=== PATIENT | female | born 1995 | race Caucasian/White ===

== ENCOUNTER → 2017-03-05 | Day surgery (SDC) | payer OTHER ==
[~2017-03-05] VITALS: Ht 157.5 cm; Wt 56.2 kg
[~2017-03-05] MED LIST: BENTYL 10 MG CA10 M1 PO; CALCIUM 600 +1 EA11 PO; CIPRO500 MG PO; CO Q-10100 MG PO; HYDROCODONE-AP1 EAC6 PO; LEXAPRO 10 MG T10 M2 PO; LORYNA 3 MG-0.1 EACH PO; MAGNESIUM OXID400 MG PO; MOBIC7.5 MG PO; OCELLA 3 MG-0.1 EACH PO; ONDANSETRON HCL4 M2 PO; PROBIOTIC1 EAC1 PO
--- NOTE | ~2017-03-05 | S ---
[facility] [place] [address] SURGICAL PATH RPT PROCEDURE Name: DAE CHURCH Room #: REG [facility]..#: [id number] Admission: 03/05/17 Date of : 89 Discharge: Report #: [id number] Path Case #: [id number] PATHOLOGY REPORT COLLECTION DATE: 03/05/2017 RECEIVED DATE: 03/06/2017 SUBMITTING PHYS: Dr. Herminio Purdy, DO OTHER PHYS: Dr. Luke Fernandez SPECIMEN(S) RECEIVED: A.Appendix * * * * * * * * * * * * FINAL DIAGNOSIS: Appendix, appendectomy: - Moderate acute and chronic appendicitis associated with fibrinopurulent material within the lumen. 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 (IUV:steve; 03/09/2017) PATHOLOGIST: Nayeli Clarke M.D. REPORT ELECTRONICALLY SIGNED BY: Nayeli Clarke M.D. DATE/TIME: 03/09/2017 16:54 * * * * * * * * * * * * GROSS PATHOLOGY: Received in formalin labeled "Dae Church, appendix" and consists of a 10.0 cm in length by 0.7 cm in diameter vermiform appendix with contiguous glistening yellow mesoappendix, 5.9 x 2.0 x 0.7 cm. The serosa is glistening, pink, newton, and slightly hemorrhagic. The margin is inked black. The lumen contains pasty brown feculent material. The mucosa is glistening and newton. No masses, fecaliths, or perforations are identified. The specimen is entirely submitted A1-A5. (WALT; 03/06/2017) CLINICAL HISTORY: Acute appendicitis INITIAL CPT CODE(S): A; 16585 Professional services performed by [facility] at [facility] [address] , [place] [address] [facility] [address] [place] [address] SURGICAL PATH RPT PROCEDURE Name: DAE CHURCH Room #: REG [facility].#: [id number] Admission: 03/05/17 Date of : [birth year] Discharge: Report #: [id number] Path Case #: [id number] Technical services performed by [facility] at [address] [place] [address], [facility] [address], [place] [address]. [facility] [place] [address] PHONE: [phone] DIRECTOR: Chuckie De Leon M.D. * * * END OF REPORT * * *
[2017-03-05 14:03] VITALS: BP 121/74
[2017-03-05 16:10] VITALS: BP 121/74
== END | disposition home or self-care (01) ==
LOC: OR 12:21
DX: K35.89 Other acute appendicitis (principal); Z88.1 Allergy status to other antibiotic agents; Z79.891 Long term (current) use of opiate analgesic; Z91.048 Other nonmedicinal substance allergy status
CPT/HCPCS: 50010; 50101; 50249; 50411; 50555; 50558; 50739; 50740; 50962; 51975; 52265; 53307; 53310; 54022; 54118; 55245; 56462; 56525; 56526; 62110; 62900; 70005

== ENCOUNTER → 2017-12-29 | Outpatient (CLI) | payer OTHER ==
[~2017-12-29] MED LIST changes: +FLEXERIL PO; +FROVA2.5 MG PO; +GIANVI 3 MG-0.1 EACH PO; +HYOSCYAMINE0.375 M1 PO; +LEVSIN0.125 MG PO; +LINZESS145 MCG PO; +MOBIC15 MG PO; +NEURONTIN300 MG PO; +PREDNISONE 5 MG5 M1 PO
--- NOTE | ~2017-12-29 | SLE ---
[facility] [place] [address] POLYSOMNOGRAPHY STUDY Name: DAE SHAH [facility] [id number] Admission: 12/29/17 Attend Phys: Jossy Doss MD Discharge: Date of : 93 Report #: [id number] THIS REPORT FOR: //name// CC: Jossy Jaramillo MD DATE OF SERVICE: 12/29/2017 ATTENDING PHYSICIAN: Dr. Satish Jaramillo. The patient is a 22-year-old who weighs 130 pounds and is 63 inches tall with a BMI of 23. The patient has severe subjective hypersomnia with an Sterling score of 20 out of a maximum of 24. The patient had a sleep study done at an outside facility in October and was found to have no evidence of any clinically significant sleep disordered breathing. She was referred back to [facility] for a polysomnogram followed by multiple sleep latency tests. The results of the polysomnogram are discussed here. The patient has been on cyclobenzaprine as well as Lexapro, which were withheld 2 weeks before as reported to me. During the night of study, the patient spent 470 minutes in bed and slept for 461 minutes with an excellent sleep efficiency of 98%. Sleep latency was 3.4 minutes with a REM latency of 52.4 minutes. Overall sleep architecture showed normal stage 2 and stage 2 sleep, normal N3 sleep and increased REM sleep, which was 31% of the total sleep time. During the night of the study, the patient had no central, mixed or obstructive apneas. There were no hypopneas. The patient's apnea-hypopnea index for the entire night was 0 per hour. Review of nocturnal oximetry study revealed an average oxygen saturation of 97% with a lowest of 93%. No clinically significant desaturations of less than 90% were observed. EKG monitoring revealed normal sinus rhythm. Average heart rate was 85 beats per minute with a maximum of 114 beats per minute. No arrhythmias were observed. No clinically significant PLMS were seen. The PLM index was 0.8 per hour with an arousal index of 0.1 per hour. Due to no significant sleep disordered breathing, the patient did not meet the criteria for CPAP initiation. IMPRESSION: 1. No clinically significant sleep disordered breathing. The patient's [facility] [address] [place] [address] POLYSOMNOGRAPHY STUDY Name: DAE SHAH Room #: REG CL[facility]ennie [facility]ate#: [id number] Admission: 12/29/17 Attend Phys: Jossy Doss MD Discharge: Date of : 93 Report #: [id number] apnea-hypopnea index for the entire night was 0 per hour. 2. Normal sleep efficiency of 98%. 3. No clinically significant nocturnal hypoxia. 4. No clinically significant periodic limb movements in sleep. RECOMMENDATIONS: 1. The patient did not meet the criteria for CPAP initiation. 2. 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 3. Cautioned regarding driving until the patient's hypersomnia has resolved. 4. To further evaluate the patient's severe subjective hypersomnia, the patient underwent multiple sleep latency tests the next day, which is reported separately. <ELECTRONICALLY SIGNED> By: Favio Doss MD 12/31/1717 06 29 Favio Doss MD /nt
--- NOTE | ~2017-12-29 | SLE ---
[facility] [place] [address] POLYSOMNOGRAPHY STUDY Name: DAE SHAH [id number] Admission: 12/29/17 Attend Phys: Jossy Doss MD Discharge: Date of : 93 Report #: [id number] THIS REPORT FOR: //name// CC: Jossy Jaramillo MD ATTENDING PHYSICIAN: Dr. Satish Jaramillo. The patient is a 22-year-old female who weighs 130 pounds and is 63 inches tall with a BMI of 23. The patient has severe subjective hypersomnia with an Ashford score of 20 out of a maximum of 24. The patient underwent multiple sleep latency tests, which was preceded by an overnight polysomnogram. The patient's polysomnogram did not reveal any evidence of clinically significant sleep disordered breathing. The patient's AHI for the entire night was 0 per hour. The patient has normal sleep efficiency of 98%. The patient had increased REM sleep, which was 31% of the total sleep time. Prior to the MSLT, the patient was advised to stop Lexapro and cyclobenzaprine for 2 weeks before the test.Patient also reportidly has cataplexy and hyponagogic hallucinations. Standard multiple sleep latency protocol was used. The patient was allowed 5 daytime nap opportunities spaced at 2 hour intervals beginning at 8:01 a.m. During the first nap, the patient's sleep latency was 1 minute and 42 seconds and the patient had REM sleep, which was seen at 15 minutes. During the second nap, the patient's sleep latency was 1 minute and again REM sleep was observed. During the third nap, the patient's sleep latency was 1 minute and 30 seconds and again REM sleep was observed. During the fourth nap, the patient's sleep latency was 1 minute and again REM sleep was observed. During the last nap, the patient's sleep latency was 2 minutes and 24 seconds and no REM sleep was observed. The patient's mean sleep latency for the all five naps was 1 minute and 31 seconds and out of 5 naps, REM sleep was observed in four naps. IMPRESSION: Highly abnormal multiple sleep latency tests with severe pathological hypersomnia. This is highly consistent with narcolepsy. Clinical correlation is advised Patients mean sleep latency for all five naps was only 1 min and 31 seconds and REM sleep was observed in 4/5 naps. RECOMMENDATION: 1. The patient would benefit from initiation of stimulant therapy. 2. 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 3. Cautioned regarding driving until patient's hypersomnia is resolved after [facility] [address] [place] [address] POLYSOMNOGRAPHY STUDY Name: PABLODAE CARDENAS Room #: REG [facility] Rio#: [id number] Admission: 12/29/17 Attend Phys: Jossy Doss MD Discharge: Date of : 93 Report #: [id number] initiation of stimulant treatment. 4. Follow up with sleep specialist as clinically indicated. <ELECTRONICALLY SIGNED> By: Favio Doss MD 12/31/17 0717 2113 2143 Favio Doss MD /nt
== END ==
LOC: SLEEPLAB 15:35
DX: G47.31 Primary central sleep apnea (principal); G47.19 Other hypersomnia; R53.83 Other fatigue

== ENCOUNTER → 2017-12-30 | Outpatient (CLI) | payer OTHER ==
[~2017-12-30] MED LIST changes: +NUVIGIL150 MG PO
[2017-12-30 17:17] LABS: AMP/METHAMP Negative (Negative); BARBITURATES Negative (Negative); BENZODIAZEPINES Negative (Negative); COCAINE Negative (Negative); METHADONE Negative (Negative); OPIATES Negative (Negative); PCP Negative (Negative)
== END ==
LOC: SLEEPLAB 06:25
PROVIDERS: Internal Medicine Critical Care Medicine
DX: G47.31 Primary central sleep apnea (principal); G47.19 Other hypersomnia; R53.83 Other fatigue

== ENCOUNTER → 2018-01-22 | Outpatient (CLI) | payer OTHER ==
[~2018-01-22] VITALS: Ht 157.5 cm; Wt 59.1 kg
--- NOTE | ~2018-01-22 | HPC ---
[facility] [place] [address] PAIN MANAGEMENT CONSULTATION Name: DAE SHAH Room #: REG [facility].#: [id number] Admission: 01/22/18 Attend Phys: Linwood Quiros MD Discharge: Date of : 93 Report #: [id number] THIS REPORT FOR: //name// CC: Linwood Fernandez MD DATE OF SERVICE: 01/22/2018 CHIEF COMPLAINT: Headache pain. HISTORY OF PRESENT ILLNESS: The patient is a 23-year-old female who has been seen in the pain clinic because of migraine headaches. She has migraine headaches as well as had some problems with her shoulders and arm. She has been experiencing pain and discomfort in the head area, it involves her occipital areas. Palpation in these areas reproduced her discomfort. She did try medications like Frova. She feels that her headaches still is problematic. She has returned today with the continuation of her headaches. She has tried Gralise. She did not find that this medication provided a significant improvement in her pain. At this juncture, she has come to the pain clinic with the contemplation of undergoing an occipital injection to help control and decrease her discomfort. ALLERGIES: MACROBID AND ADHESIVE TAPE. CURRENT MEDICATIONS: Linzess 145 mg capsules, hyoscyamine 0.375 mg q.12h, Levsin 0.125 mg p.r.n., prednisone 2.5 mg p.r.n., Meloxicam 15 mg daily, estradiol, Flexeril 10 mg p.r.n. spasms, gabapentin 300 mg daily, Zofran 4 mg q.8 hours, Lexapro 10 mg. PAIN CLINIC ASSESSMENT/PQRS: 1. The patient is not being treated for osteoarthritis or rheumatoid arthritis. 2. Height 5 feet 2 inches, weight 134 pounds, BMI is 23.8. 3. Vital signs: Blood pressure 125/86, pulse 126, respiratory rate 16, room air saturation 97%. 4. Pain intensity 08/13. 5. Fall risk. The patient has not fallen in the last 3 months. 6. Blood thinner. The patient is not on a blood thinning medication. 7. History of hypertension. The patient is not being treated for hypertension. 8. Opioid greater than 6 weeks. The patient is not on an opioid contract. 9. Risk assessment tool, low for her use of opioids. 10. Functional assessment tool 39/70. 11. Recreational drug use. The patient denies. 12. Tobacco. The patient has never smoked. 13. Alcohol. The patient drinks alcohol on an occasional basis. [address] [address] PAIN MANAGEMENT CONSULTATION Name: DAE SHAH [facility] [id number] Admission: 01/22/18 Attend Phys: Linwood Quiros MD Discharge: Date of : 93 Report #: [id number] PHYSICAL EXAMINATION: GENERAL: The patient is a well-developed, well-nourished white female. Appears her stated age. She is alert and oriented x 3. Her mother is present. HEENT: Normocephalic, atraumatic. Extraocular eye muscles intact. Sclerae nonicteric. Mucous membranes are moist. Hearing is within normal limits. The patient has good range of motion without JVD in the neck area. Palpation in the left and right occipital area causes some recurrent/exacerbation of pain and discomfort in this area. Palpation causes pain that radiates from the occipital area to the lateral temporal areas bilaterally and on the top of her head. MUSCULOSKELETAL: Without significant scoliosis, kyphosis, or lordosis. Muscle strength in the lower extremity judged to be 5/5. Muscle strength in upper extremity judged to be 5/5. IMPRESSION: 1. Occipital neuralgia bilaterally. 2. History of migraine headaches. 3. Chronic regional pain syndrome involving the left leg at age 11, treated conservatively and resolved. 3. Celiac disease. 4. Endometriosis. 5. Asthma. 6. Emotional problems. RECOMMENDATIONS: We discussed treatment options with the patient. Risks and benefits of an occipital injection were discussed. They include but are not limited to infection, increased muscle soreness, worsening of pain, no improvement in pain, and bleeding. PROCEDURE NOTE: The patient was placed in the prone position. Her neck was sterilely prepped with a chlorhexidine solution on the left and the right side. This area had been allowed to dry. The left and the right greater occipital areas were identified. A 25-gauge needle was advanced on the left side. The patient states this reproduced her discomfort. Aspiration was negative. Total of 5 mL of 0.5% bupivacaine and 40 mg triamcinolone was injected. The contralateral side was treated in a like fashion. A 25-gauge needle was advanced in the area of the greater occipital nerve. Aspiration was negative. A total of 5 mL of 0.5% bupivacaine was injected. A total of 40 mg triamcinolone was injected. The patient tolerated the procedure well. There were no complications. She remained in the pain clinic for an appropriate amount of time. She will follow up in the future as needed. We would like to thank you for letting us participate in her care. We hope she continues to improve. By: [id number] Linwood Quiros MD /MONIQUE
[2018-01-22 10:53] VITALS: BP 125/86
== END | disposition home or self-care (01) ==
LOC: PAIN 06:49
DX: M54.81 Occipital neuralgia (principal); G89.29 Other chronic pain; J45.909 Unspecified asthma, uncomplicated; F99 Mental disorder, not otherwise specified; Z88.8 Allergy status to other drugs, medicaments and biological substances; Z79.899 Other long term (current) drug therapy; G43.909 Migraine, unspecified, not intractable, without status migrainosus

== ENCOUNTER → 2018-02-03 | Outpatient (CLI) | payer OTHER ==
[~2018-02-03] VITALS: Ht 157.5 cm; Wt 60.1 kg
--- NOTE | ~2018-02-03 | HPC ---
[facility] [place] [address] PAIN MANAGEMENT CONSULTATION Name: DAE SHAH Room #: REG [facility] Rio#: [id number] Admission: 02/03/18 Attend Phys: Linwood Quiros MD Discharge: Date of : 89 Report #: [id number] THIS REPORT FOR: //name// CC: Linwood Fernandez DATE OF SERVICE: 02/03/2018 FOLLOWUP COMPLAINT: "The pain in the head has decreased. I have had a fewer migraine headaches after the occipital injection. I am having worse pain in my arms, particularly on the right side with pain that is going down into my arm with numbness, tingling, and particularly note numbness in my little and ring finger." HISTORY OF PRESENT ILLNESS: The patient is a 23-year-old female who has been seen in the Pain Clinic because of migraine headaches as well as cervical radicular pain. She underwent an injection in the occipital area at the last visit. She notes that the pain has decreased, she is having a fewer migraine headaches as a result of that. She is now having some discomfort involving her right arm with pain that is radiating down to the right shoulder, right arm, down into the hand with particular note of numbness and tingling involving the little and ring finger. She feels that she would like to consider a cervical epidural steroid injection given that the pain has continued to worsen. ALLERGIES: MACROBID, ADHESIVE TAPE. CURRENT MEDICATIONS: Linzess 145 mg capsules, hyoscyamine 0.375 mg q. 12 hours, Levsin 0.125 mg p.r.n., prednisone 2.5 mg p.r.n., meloxicam 15 mg daily, estradiol, Flexeril 10 mg p.r.n. spasms, gabapentin 300 mg daily, Zofran 4 mg q. 8 hours p.r.n., Lexapro 10 mg. PAIN CLINIC ASSESSMENT/PQRS: 1. The patient is not being treated for osteoarthritis or rheumatoid arthritis. 2. Height 5 feet 2 inches, weight 132 pounds, BMI is 24. 3. Vital signs: Blood pressure 151/103, pulse 96, respiratory rate 16, room air saturation 99%. 4. Pain intensity: 5-6/10. 5. Fall risk: The patient has not fallen in the last 3 months. 6. Blood thinner: The patient is not on a blood thinning medication. 7. Hypertension: The patient is not being treated for hypertension. 8. Opioid therapy: The patient is not on an opioid regimen. 9. Risk assessment tool: Low/zero. 10. Functional assessment tool: 39/70. 11. Recreational drug use: The patient denies use of recreational drugs. 12. Tobacco: The patient denies use of tobacco. 13. Alcohol: The patient drinks alcoholic beverages on occasion. [address] [address] PAIN MANAGEMENT CONSULTATION Name: DAE SHAH [id number] Admission: 02/03/18 Attend Phys: Linwood Quiros MD Discharge: Date of : 93 Report #: [id number] PHYSICAL EXAMINATION: GENERAL: The patient is a well-developed, well-nourished white female. She appears her stated age. She is alert and oriented x 3. Her affect is appropriate. Speech is fluent. HEENT: Normocephalic, atraumatic. Extraocular eye muscles intact. Sclerae nonicteric. Mucous membranes are moist. NEUROLOGIC: The patient is not complaining of pain and discomfort in the occipital area. She complains of pain in the right upper extremity with pain that radiates down the shoulder to the forearm with numbness and tingling involving the ring and little finger. 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 Lower extremity muscle strength is judged to be 5/5 for the major muscle groups. IMPRESSION: 1. Cervical radiculopathy with numbness and tingling involving the ring and little finger on the right. 2. Migraine headaches - decreased after occipital nerve block. 3. Celiac disease. 4. Endometriosis. 5. Asthma. 6. Emotional problems. RECOMMENDATIONS: We discussed treatment options with the patient. Risks and benefits of a cervical epidural steroid injection were discussed. They include but are not limited to infection, increased muscle soreness, headache, bleeding, worsening of pain, no improvement in pain, spinal headache. The patient elects to proceed. Her mother was accompanying her. PROCEDURE NOTE: The patient was taken to the procedure area. She was assisted in getting on examination table. Her back was sterilely prepped with a Betadine solution. Fluoroscopy using anterior, posterior as well as lateral viewing was implemented. Her back was sterilely prepped with a Betadine solution. A 25-gauge needle was then used to infiltrate the right paraspinous area at T1/C7. A 17-gauge Tuohy with loss of resistance technique was used to gain access to the epidural space. There was no CSF, heme or paresthesia. A total of 120 mg triamcinolone was injected. The patient did feel a little bit hot. She was placed in Trendelenburg. She noticed that her discomfort improved. The hot-flash disappeared. She remained in the procedure room for an appropriate amount of time. She was then taken to the recovery room where she remained for an appropriate amount of time. There were no complications. She will follow up in the future as needed. [facility] [address] [place] [address] PAIN MANAGEMENT CONSULTATION Name: DAE SHAH Room #: REG [facility].#: [id number] Admission: 02/03/18 Attend Phys: Linwood Quiros MD Discharge: Date of : 93 Report #: [id number] We would like to thank you for letting us participate in her care. We hope she continues to improve. By: [id number] [id number] Linwood Quiros MD /nt
[2018-02-03 08:43] VITALS: BP 151/103
== END | disposition home or self-care (01) ==
LOC: PAIN 06:42
DX: M54.12 Radiculopathy, cervical region (principal); G89.29 Other chronic pain; J45.909 Unspecified asthma, uncomplicated; G43.909 Migraine, unspecified, not intractable, without status migrainosus; Z98.890 Other specified postprocedural states; Z79.899 Other long term (current) drug therapy; Z88.8 Allergy status to other drugs, medicaments and biological substances

== ENCOUNTER → 2018-02-19 | Outpatient (CLI) | payer OTHER ==
[~2018-02-19] VITALS: Ht 157.5 cm; Wt 62.0 kg
[~2018-02-19] MED LIST changes: +ADDERALL 10 MG10 MG PO
[2018-02-19 14:28] VITALS: BP 156/100
== END ==
LOC: PAIN 07:28
DX: M79.18 Myalgia, other site (principal)

== ENCOUNTER → 2019-09-06 | Outpatient (CLI) | payer OTHER | LOC: LAB 11:47 | DX: R05 Cough (principal); R11.0 Nausea; R51 Headache; Z20.828 Contact with and (suspected) exposure to other viral communicable diseases ==